=== PATIENT | female | born 1990 ===

== ENCOUNTER 2023-05-11 10:36 | Outpatient (REF) | payer SELFPAY ==
--- NOTE | 2023-05-11 12:43 | MHC.AU.HA2 ---
Hearing Instrument Fitting- Adult- Binaural Date of Visit: 05/11/23 Hearing Instruments Dispensed: Right Ear: Andrews, Model, Color, Serial Number: Henrique Gates L70-R Jessica Serial #[id number] Machine Packager Repair Warranty: 06/28/2026 Machine Packager Loss and Damage Warranty: 06/28/2026 [facility] Service Plan: 05/11/2024 Battery Size: Rechargeable Welding Machine Operator Submerged Arc/Slim Tube: 0P Earmold/Dome/CShell/SlimTip: Small vented dome Type of Wax Guard: CeruShield Left Ear: Make, Model, Color, Serial Number: Henrique Gates L70-R Magdiele Serial #[id number] Machine Packager Repair Warranty: 06/28/2026 Machine Packager Loss and Damage Warranty: 06/28/2026 [facility] Service Plan: 05/11/2023 Battery Size: Rechargeable Welding Machine Operator Submerged Arc/Slim Tube: 0P Earmold/Dome/CShell/SlimTip: Small vented dome Type of Wax Guard: CeruShield Accessories/Assistive Technology: Silo Filler SN: [id number]; Valerio On iN SN: [id number]; Flow Med Dry Cap UV 2.1 Summary of Fitting: Performed feedback meat department manager and real ear measurements. Attempted to use small power dome; however, it was too big for ear canal. Switched to small vented domes with appropriate match to target through 4 kHz. Comfortable at real ear settings. Discussed care and use including rechargeability, manually turning on/off, changing domes and wax guards, and volume control use. Practiced insertion and removal (no retention tail). Instructed on use of Flow Med Dry Cap. Dispensed Valerio On and receivers installed into hearing aids; however, did not discuss use at this time due to amount of information given related to the hearing aids themselves. Sisi will use the next couple of weeks to acclimate to the hearing aids. Will discuss use of Valerio On and bluetooth capabilities with cellphone at the follow up appointment. Recommendations: A hearing instrument follow-up was scheduled. Diagnosis Code(s): Primary Diagnosis: H90.3 Bilateral Sensorineural Hearing Loss Signature: Provider: Mohit Pond, [facility]3]-A
== END 2023-05-11 10:37 | disposition home or self-care (01) ==
LOC: HO.HAP 10:36
PROVIDERS: Visit Provider Audiologist
DX: Z46.1 Encounter for fitting and adjustment of hearing aid (principal); H90.3 Sensorineural hearing loss, bilateral
CPT/HCPCS: V5011; V5020; V5160; V5261; V5267; V5274

== ENCOUNTER 2023-06-13 11:38 | Outpatient (REF) | payer SELFPAY ==
--- NOTE | 2023-06-14 10:29 | MHC.AU.HA3 ---
Hearing Instrument Follow-Up- Binaural Date of Visit: 06/13/23 Right Ear: Andrews, Model, Color, Serial Number: Henrique Gates L70-R SN: [id number] Color: Jessica Optometrist President/Practice Owner Repair Warranty: 06/28/2026 Optometrist President/Practice Owner Loss and Damage Warranty: 06/28/2026 [facility] Service Plan: 05/11/2024 Battery Size: Rechargeable Photo Tech/Slim Tube: 0P Earmold/Dome/CShell/SlimTip:Small vented dome Type of Wax Guard: CeruShield Dispensed By: [facility] Date of Fittin05/11/2023 Left Ear: Andrews, Model, Color, Serial Number: Henrique Gates L70-R SN: [id number] Color: Jessica Optometrist President/Practice Owner Repair Warranty: 06/28/2026 Optometrist President/Practice Owner Loss and Damage Warranty: 06/28/2026 [facility] Service Plan: 05/11/2023 Battery Size: Rechargeable Photo Tech/Slim Tube: 0P Earmold/Dome/CShell/SlimTip: Small vented dome Type of Wax Guard: CeruShield Dispensed By: [facility] Date of Fittin05/11/2023 Follow-Up Summary: Sisi reported that overall she has noticed significant benefit from the hearing aids; however, there are still times she struggles to understand speech. Loud environments, such as the kitchen at work, can be overwhelming. Data logging showed about 15 hours of use per day. She also reportedly gets constant feedback from the right hearing aid and when she tries to increase the volume, it reaches the maximum too soon. Reran feedback senior case manager. Recommend c-shells to allow for more amplification without risking feedback. Impressions were taken, bilaterally, without incident (in hold drawer). Will submit quote to [facility] for approval. Sisi forgot to bring the RogerOn to this appointment for instruction and to demo use. However, she is interested in using the RogerOn and would like to discuss its functions. Advised Sisi to bring RogerOn to next appointment. If [facility] approves ear molds, hearing aids should be fully reprogrammed with real ear measures and new c-shells. Recommendations: Patient will be contacted when materials have arrived. Diagnosis Code(s): Primary Diagnosis: H90.3 Bilateral Sensorineural Hearing Loss Signature: Provider: Mohit Pond, [facility]
== END 2023-06-13 11:39 | disposition home or self-care (01) ==
LOC: HO.HAP 11:38
PROVIDERS: Visit Provider Radiology Neuroradiology
DX: Z13.89 Encounter for screening for other disorder (principal)

== ENCOUNTER 2023-06-24 13:55 | Outpatient (REF) | payer SELFPAY ==
--- NOTE | 2023-06-24 14:27 | MHC.AU.HA3 ---
Hearing Instrument Follow-Up- Binaural Date of Visit: 06/24/23 Right Ear: Andrews, Model, Color, Serial Number: Henrique Gates L70-R SN: [id number] Color: Magdiele Pan Tank Worker Repair Warranty: 06/28/2026 Pan Tank Worker Loss and Damage Warranty: 06/28/2026 [facility] Service Plan: 05/11/2024 Battery Size: Rechargeable Hand Outside Cutter/Slim Tube: 0P Earmold/Dome/CShell/SlimTip:Small vented dome Type of Wax Guard: CeruShield Dispensed By: [facility] Date of Fittin05/11/2023 Left Ear: Andrews, Model, Color, Serial Number: Henrique Gates L70-R SN: [id number] Color: Josueagne Pan Tank Worker Repair Warranty: 06/28/2026 Pan Tank Worker Loss and Damage Warranty: 06/28/2026 [facility] Service Plan: 05/11/2023 Battery Size: Rechargeable Hand Outside Cutter/Slim Tube: 0P Earmold/Dome/CShell/SlimTip: Small vented dome Type of Wax Guard: CeruShield Dispensed By: [facility] Date of Fittin05/11/2023 Follow-Up Summary: Sisi had a recent hearing evaluation at [facility] which showed a decrease in hearing 10-15 dB HL across the frequency range. She has a progressive hearing loss that is currently being evaluated by both the ENT and her PCP. According to a note from Dr. 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 [which] may be a component of another overarching genetic syndrome. Also this could possibly represent cochlear otosclerosis. Sisi reported they are waiting for blood work and other tests to determine if a cause can be identified. Her hearing aids were reprogrammed to her most recent evaluation from 06/14/2023. She noticed immediate improvement in office. Slight feedback but manageable. Discussed need for c-shells with UP receivers. She will email her counselor at [facility] to determine the status of approval for the earmolds. She has follow up with the ENT for updated testing in September. Recommendations: Please contact our clinic with any questions or concerns. Patient will call if problems persist. Diagnosis Code(s): Primary Diagnosis: H90.3 Bilateral Sensorineural Hearing Loss Signature: Provider: Mohit Pond, [facility]
== END 2023-06-24 13:56 | disposition home or self-care (01) ==
LOC: HO.HAP 13:55
PROVIDERS: Visit Provider Internal Medicine
DX: Z13.89 Encounter for screening for other disorder (principal)

== ENCOUNTER 2024-02-28 10:53 | Outpatient (REF) | payer SELFPAY | END 2024-02-28 10:54 | disposition home or self-care (01) | LOC: HO.HAP 10:53 | DX: Z13.89 Encounter for screening for other disorder (principal) ==

== ENCOUNTER 2024-03-02 11:08 | Outpatient (REF) | payer SELFPAY | END 2024-03-02 11:09 | disposition home or self-care (01) | LOC: HO.HAP 11:08 | DX: Z13.89 Encounter for screening for other disorder (principal) ==

== ENCOUNTER 2024-04-11 14:53 | Outpatient (REF) | payer SELFPAY | END 2024-04-11 14:54 | disposition home or self-care (01) | LOC: HO.HAP 14:53 | PROVIDERS: Visit Provider Family Medicine | DX: Z46.1 Encounter for fitting and adjustment of hearing aid (principal); H90.3 Sensorineural hearing loss, bilateral | CPT/HCPCS: V5267 ==